=== PATIENT | male | born 1955 | race Caucasian/White ===

== ENCOUNTER 2023-02-05 11:52 | Emergency (ER) | payer MEDICARE ==
[~2023-02-05] VITALS: Ht 172.7 cm; Wt 85.0 kg
[2023-02-05] MEDS ORDERED: SINGULAIR10 MG PO (12:21)
[2023-02-05] MEDS ORDERED: ATORVASTATIN CA20 MG PO (12:22)
[2023-02-05] MEDS ORDERED: TAMSULOSIN0.4 MG PO (12:39)
[2023-02-05] MEDS ORDERED: ALBUTEROL SUL0.083 % IN (12:39)
[2023-02-05] MEDS ORDERED: SYMBICORT 80-4.5MCG (12:40)
[2023-02-05 12:51] LABS: BASO% 0.8 % (0-3); EOS% 4.3 % (0-8); HEMATOCRIT 50.9 % (39.0-50.0); HEMOGLOBIN 16.3 g/dl (14.0-18.0); IMMATURE GRANULOCYTES 0.2 % (0.0-5.0); LYMPH% 5.5 % (15-41); MEAN CELL VOLUME 88.8 fL CALC (80.0-100.0); MEAN CORPUSCULAR HGB 28.4 pG CALC (26.0-32.0); MONO% 14.3 % (2-13); NEUT# 6.66 thou/uL (1.82-7.42); NEUT% 74.9 % (42-76); RED BLOOD COUNT 5.73 mill/uL (4.70-6.10); RED CELL DISTRI WIDTH 13.5 % (11.5-15.5)
[2023-02-05 12:59] LABS: ALBUMIN 4.2 g/dL (3.2-5.0); ALKALINE PHOSPHATASE 80 u/l (38-126); ANION GAP 11 (6-22 (CALC)); BILIRUBIN, TOTAL 0.5 mg/dL (0.2-1.3); BUN 10 mg/dL (8-23); BUN/CREATININE RATIO 12 (12-20 (CALC)); CARBON DIOXIDE 24 mmol/l (22-30); CHLORIDE 106 mmol/l (95-108); CREATININE 0.8 mg/dL (0.7-1.3); GFR FOR AFR.AMER. > 60 ML/MIN (>=60 (CALC)); GFR OTHER RACES > 60 ML/MIN (>=60 (CALC)); POTASSIUM 4.5 mmol/l (3.5-5.1); SGOT/AST 29 u/l (19-48); SODIUM 136 mmol/l (137-146)
[2023-02-05] MEDS ORDERED: PAXLOVID PO (13:09)
[2023-02-05 13:49] VITALS: BP 128/87
== END 2023-02-05 13:52 | disposition home or self-care (01) ==
LOC: ED 11:52
PROVIDERS: Family Medicine
DX: U07.1 COVID-19 (principal); R51.9 Headache, unspecified; R68.83 Chills (without fever); H57.89 Other specified disorders of eye and adnexa; R05.9 Cough, unspecified